=== PATIENT | female | born 2005 | race Caucasian/White ===

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

== ENCOUNTER 2024-08-10 14:04 | Outpatient (CLI) | payer BC, SELFPAY ==
[2024-08-10 15:42] LABS: Bacterial Vaginosis* Negative (Negative); Candida glab/krus NOT DETECTED (No Detected); Candida species NOT DETECTED (No Detected); Trichomonas vaginalis NOT DETECTED (No Detected)
== END 2024-08-10 14:05 | disposition home or self-care (01) ==
LOC: NFLDREF 14:04
PROVIDERS: Visit Provider Physician Assistant
DX: N89.8 Other specified noninflammatory disorders of vagina (principal)
CPT/HCPCS: 81513; 87481; 87661

== ENCOUNTER 2024-08-12 15:47 | Outpatient (CLI) | payer BC, SELFPAY | END 2024-08-12 15:48 | disposition home or self-care (01) | LOC: US 15:48 | PROVIDERS: Visit Provider Physician Assistant | DX: N92.1 Excessive and frequent menstruation with irregular cycle (principal); Z97.5 Presence of (intrauterine) contraceptive device | CPT/HCPCS: 76830 ==

== ENCOUNTER 2024-10-21 14:53 | Outpatient (CLI) | payer BC, SELFPAY ==
[2024-10-21 18:31] LABS: Bacterial Vaginosis* Negative (Negative); Candida glab/krus NOT DETECTED (No Detected); Candida species NOT DETECTED (No Detected); Trichomonas vaginalis NOT DETECTED (No Detected)
== END 2024-10-21 14:54 | disposition home or self-care (01) ==
LOC: NFLDREF 14:54
PROVIDERS: Visit Provider Obstetrics & Gynecology
DX: N76.0 Acute vaginitis (principal); R10.2 Pelvic and perineal pain; R35.0 Frequency of micturition
CPT/HCPCS: 81513; 87086; 87481; 87661

== ENCOUNTER 2024-12-30 10:22 | Outpatient (CLI) | payer BC, SELFPAY ==
[2024-12-30 11:47] LABS: Hematocrit 41.2 % (33.0-51.0); Hemoglobin* 13.7 gm/dL (12.0-16.0); Immature Granulocytes Abs Auto 0.02 K/uL (0.00-0.30); Immature Granulocytes Pct Auto 0.3 %; Lymphocytes Absolute Auto 1.71 K/uL (0.90-2.90); Mean Corpuscular HGB Conc 33 gm/dL (32-36); Mean Corpuscular Hemoglobin 27 pg (26-34); Mean Corpuscular Volume 82 fL (80-100); RDW Coefficient of Variation % 12.0 % (11.5-15.5); Red Blood Count 5.01 m/uL (4.00-5.20); White Blood Count* 6.48 K/uL (4.50-11.00)
[2024-12-30 11:49] LABS: Slide Review Reflex No
[2024-12-30 12:19] LABS: Albumin* 5.1 g/dL (3.3-5.0); Chloride* 103 mmol/L (96-114); Potassium* 3.9 mmol/L (3.6-5.1); Sodium* 138 mmol/L (135-149)
[2024-12-30 12:22] LABS: Alanine Aminotransferase* 12 U/L (4-35); Alkaline Phosphatase* 52 U/L (40-150); Anion Gap 12 mEq/L (7-15); Aspartate Amino Transferase* 27 U/L (12-35); Bilirubin Total* 0.7 mg/dL (0.1-1.5); Blood Urea Nitrogen* 8 mg/dL (5-24); Carbon Dioxide* 23 mmol/L (20-32); Creatinine* 0.7 mg/dL (0.5-1.5); Estimated Glomerular Filt Rate 127 ml/min
[2024-12-30 12:23] LABS: Calcium* 9.5 mg/dL (8.4-10.6); Glucose* 82 mg/dL (60-115); Total Protein* 8.3 g/dL (6.0-8.3)
[2024-12-30 12:27] LABS: Erythrocyte SedimentationRate* 3 mm/hr (2-20)
[2024-12-30 12:46] LABS: Vitamin D 25 Hydroxy* 58 ng/mL (30-80)
[2024-12-30 13:12] LABS: Vitamin B12* 284 pg/mL (243-894)
[2024-12-30 13:13] LABS: Iron* 112 ug/dL (37-170)
[2024-12-30 13:22] LABS: PTH Intact* 18.8 pg/mL (14.2-75.2)
[2024-12-30 13:23] LABS: Percent Iron Saturation 23 % (20-50); Total Iron Binding Capacity 500 ug/dL (265-497)
[2024-12-30 13:31] LABS: Free T4 Free Thyroxine* 0.90 ng/dL (0.70-1.85)
[2024-12-31 11:26] LABS: TPO Antibody 3.5 IU/mL (0.0-9.0)
[2024-12-31 14:37] LABS: Folate, Serum >22.3 ng/mL (>=5.9)
[2024-12-31 15:03] LABS: Anti-Nuclear Ab(ANA)IgG ELISA None Detected (None Detected); Free T3 3.5 pg/mL (2.5-4.3)
[2024-12-31 16:07] LABS: Copper, Serum/Plasma 101.6 ug/dL (80.0-155.0); Zinc, Serum/Plasma 86.9 ug/dL (60.0-120.0)
[2024-12-31 16:48] LABS: Cortisol, Serum 13.2 ug/dL
[2024-12-31 22:17] LABS: Iodine, Serum 46.2 ug/L (40.0-92.0)
[2024-12-31 23:20] LABS: Insulin, Fasting 7 uIU/mL (3-25)
[2025-01-01 02:09] LABS: DHEAS 143 ug/dL (148-407)
[2025-01-01 18:38] LABS: Vitamin B1, Whole Blood 149 nmol/L (70-180)
[2025-01-02 16:39] LABS: Vitamin C, Plasma 41 umol/L (23-114)
== END 2024-12-30 10:23 | disposition home or self-care (01) ==
PROVIDERS: Visit Provider Family Medicine
DX: D50.9 Iron deficiency anemia, unspecified (principal); E53.8 Deficiency of other specified B group vitamins; R79.82 Elevated C-reactive protein (CRP); R53.83 Other fatigue; E34.9 Endocrine disorder, unspecified; E03.9 Hypothyroidism, unspecified; K90.9 Intestinal malabsorption, unspecified; E63.9 Nutritional deficiency, unspecified; E55.9 Vitamin D deficiency, unspecified; Z13.29 Encounter for screening for other suspected endocrine disorder
CPT/HCPCS: 36415; 80053; 82180; 82306; 82525; 82533; 82607; 82627; 82728; 82746; 83018; 83525; 83540; 83550; 83735; 83970; 84207; 84252; 84255; 84425; 84439; 84443; 84481; 84630; 85025; 85651; 86038; 86140; 86376; 86800

== ENCOUNTER 2025-01-08 08:25 | Outpatient (CLI) | payer BC, SELFPAY | END 2025-01-08 08:26 | disposition home or self-care (01) | LOC: LAB 08:25 | DX: E53.8 Deficiency of other specified B group vitamins (principal); D50.9 Iron deficiency anemia, unspecified | CPT/HCPCS: 36415; 99001 ==